=== PATIENT | male | born 1930 | race Caucasian/White ===

== ENCOUNTER 2017-09-13 08:22 | Outpatient (CLI) | payer MEDICARE, OTHER ==
[~2017-09-13] VITALS: Ht 177.8 cm; Wt 94.1 kg
--- NOTE | ~2017-09-13 | OP ---
PATIENT NAME: IRENE MENESES MEDICAL RECORD: [id number] :[birth year] LOCATION:D.CAT ADMISSION DATE: SURGEON: ALMA WATTERS MD DATE OF OPERATION: 09/13/2017 PROCEDURE: 1. Left heart catheterization. 2. Selective coronary angiography. 3. Left ventriculogram. 4. Vein graft angiography. 5. CHARLES angiography. INDICATION: Coronary artery disease, angina, and coronary artery bypass graft surgery. PROCEDURE IN DETAIL: After informed consent was obtained and after detailed explanation of risks, benefits as well as alternative therapies, the patient elected to proceed with angiogram and heart catheterization. The right femoral area had a preexisting sheath from aortofemoral runoff. All catheters exchanged through this sheath. FINDINGS: The ventriculogram was not performed secondary to inability to cross the valve. SELECTIVE CORONARY ANGIOGRAPHY: 1. Left main showed no significant angiographic disease. 2. Left anterior descending is totally occluded. 3. Left circumflex is totally occluded. 4. The right coronary is totally occluded. 5. CHARLES to the LAD is widely patent. 6. Vein graft to the circumflex is widely patent. 7. Vein graft to the right coronary is widely patent. 8. There is a fourth vein graft most likely to an LAD diagonal that is occluded. OVERALL IMPRESSION: Wide patency of the CHARLES to LAD, vein graft to the circumflex, vein graft to the RCA. Continue medical management of the coronary artery disease and cardiac risk factors. TRANSINT:[id number] Voice Confirmation ID: [id number] DOCUMENT ID: [id number] ALMA WATTERS MD at 1323 CC: [id number] DICTATION DATE: 09/13/17 1053 PLANNING LEAD: 09/13/17 1217 DEP CLI 09/13/17 [place] [id number]
--- NOTE | ~2017-09-13 | OP ---
PATIENT NAME: IRENE MENESES MEDICAL RECORD: [id number] :[birth year] LOCATION:D.CAT ADMISSION DATE: SURGEON: ALMA WATTERS MD DATE OF OPERATION: 09/13/2017 PROCEDURES: 1. Aortofemoral runoff. 2. Abdominal aortography. INDICATION: Claudication and peripheral vascular disease. PROCEDURE IN DETAIL: After informed consent was obtained and after a detailed explanation of the risks, benefits as well as alternative therapies, the patient elected to proceed with angiogram and aortofemoral runoff. The right femoral area was prepped and draped in normal sterile fashion. The right femoral artery was cannulated via modified Seldinger technique with placement of 6-Kenyan sheath. All catheters exchanged through this sheath. FINDINGS: 1. The abdominal aortography was performed. The catheter was pulled down for aortofemoral runoff. Abdominal aortography reveals very tortuous calcified abdominal aorta, minimal aortic dilatation infrarenally. No flow-limiting stenosis. 2. RIGHT LEG: A. 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 B. Femoral system: The common superficial and deep femoral have moderate irregularities, but no flow-limiting stenosis. C. Popliteal: Infrapopliteal vessels are patent with good 3-vessel runoff to the foot. 3. LEFT LEG: A. 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 B. Femoral system: The common superficial and deep femoral have moderate irregularities, but no flow-limiting stenosis. C. Popliteal: Infrapopliteal vessels are patent with good 3-vessel runoff to the foot. 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 Minimal peripheral vascular disease is present. Continue medical management of the peripheral vascular disease and peripheral risk factors. TRANSINT:[id number] Voice Confirmation ID: [id number] DOCUMENT ID: [id number] ALMA WATTERS MD at 1323 CC: [id number] DICTATION DATE: 09/13/17 1053 HYDRAULIC TESTER: 09/13/17 1215 DEP CLI 09/13/17 [place] [address]
--- NOTE | ~2017-09-13 | HEMODYNAMI ---
PATIENT:IRENE MENESES MEDICAL RECORD: [id number] : [birth year] LOCATION:[facility] ADMISSION DATE: 09/13/17 Generatedon:09/13/201710:51 Patient name: IRENE MENESES Patient #: [id number] SSN: : 1930 Date of study: 09/13/2017 Page: Of Hemodynamic Procedure Report Patient Data Patient Demographics Procedure consent was obtained First Name: IRENE Gender: Male Last Name: ZAIRA : 1930 [facility] Initial: C Age: 87 year(s) Patient #: [id number] Race: Unknown Additional ID: [id number] Contact details [address]: [address] [place] [address] State: [place] City: [place] Zip code: [address] Past Medical History Allergies Allergen Reaction Date Comments Reported Penicillins 09/13/2017 Admission Admission Data Admission Date: 09/13/2017 Admission Time: 8:22 Procedure Procedure Types Cath Procedure Diagnostic Procedure LHC LHC w/Coronaries w/Grafts Miscellaneous Procedures Moderate Sedation up to 30 minutes Peripheral Cath Diagnostic Procedure Cath Peripheral Zklcm-Fheljpt-Mez-Off Procedure Description Procedure Date Procedure Date: 09/13/2017 Procedure Start Time: 10:27 Procedure End Time: 10:51 Procedure Staff Name Function Mac Segura MD Performing Physician Wendy Dumas RT Monitor Clau Jang RT Scrub Ehsan Milan RN Nurse Procedure Data Cath Procedure Fluoroscopy Diagnostic fluoroscopy Total fluoroscopy Time: 6.8 time: 6.8 min min Diagnostic fluoroscopy Total fluoroscopy dose: 961 dose: 961 mGy mGy Contrast Material Contrast Material Type Amount (ml) Isovue 300 113 Entry Location Entry Primary Successful Side Size Upsize 1 Upsize Entry Closure Lopez ccessful Closure Location (Fr) (Fr) 2 (Fr) Remarks Device Remarks Femoral Right 5 Fr 6 Fr 6 Fr Exoseal artery Mid-Length Short Estimated blood loss: 10 ml Diagnostic catheters Device Type Used For End Catheter Placement MULTIPACK Pigtail 5 Fr LV Angiography catheter MULTIPACK Pigtail 5 Fr LV Angiography catheter MULTIPACK Pigtail 5 Fr Abdominal catheter aortogram with runoff MULTIPACK JL 4.0 5Fr Left Coronary catheter Angiography MULTIPACK 3DRC 5Fr Internal mammary catheter arteriography MULTIPACK 3DRC 5Fr Right Coronary catheter Angiography DIAGNOSTIC AR 2 MOD 5 Fr SVG Angiography catheter ([id number]) DIAGNOSTIC AR 2 MOD 5 Fr SVG Angiography catheter ([id number]) DIAGNOSTIC AR 2 MOD 5 Fr SVG Angiography catheter ([id number]) Procedure Complications No complications Procedure Medications Medication Administration Route Dosage 0.9% NaCl I.V. 100 ml/hr Oxygen NC 2 l/min Heparin Flush Bag added to field 2 bags (1000units/500ml NS) Lidocaine 2% added to field Versed I.V. 0.5 mg Fentanyl I.V. 50 mcg Hemodynamics Rest Heart Rate: 58 (bpm) Snapshots Pre Cath Intra NCS Post Cath Vital Signs Time Heart Resp SPO2 etCO2 NIBP (mmHg) Rhythm Pain Sedation Rate (ipm) (%) (mmHg) Status Level (bpm) 10:21:43 58 19 97 29.6 163/79(136) NSR 0 (11) 10(A) , No pain 10:26:34 59 15 98 0 148/75(118) NSR 0 (11) 10(A) , No pain 10:31:23 62 15 98 0 133/74(108) NSR 0 (11) 10(A) , No pain 10:36:11 63 15 97 33.3 141/65(101) NSR 0 (11) 9(A) , No pain 10:40:56 68 14 98 0 132/70(104) NSR 0 (11) 9(A) , No pain 10:45:38 61 13 99 33.3 128/64(106) NSR 0 (11) 9(A) , No pain 10:50:24 62 15 99 31.8 127/69(99) NSR 0 (11) 9(A) , No pain Medications Time Medication Route Dose Verified Delivered Reason Notes Effe ctiveness by by 10:20:53 0.9% NaCl I.V. 100 Ehsan Ehsan Per ml/hr Kayli reddy RN RN 10:21:04 Oxygen NC 2 Ehsan Ehsan Per l/min Kayli reddy RN RN 10:21:18 Heparin Flush added 2 Ehsan Ehsan used for Bag to bags Kayli Milan procedure (1000units/500ml field RN RN NS) 10:21:30 Lidocaine 2% added Ehsan Moser for local to Lorigan Lorigan anesthetic field RN RN 10:27:34 Versed I.V. 0.5 Ehsan Ehsan for mg Lorigan Lorigan sedation RN RN 10:27:43 Fentanyl I.V. 50 Ehsan Moser for mcg Lorigan Lorinca sedation RN knitted cloth examiner Log Time Note 10:03:17 Ehsan Milan RN sent for patient. Start room use. 10:03:18 Time tracking: Regular hours 10::21 Plan of Care:Hemodynamics will remain stable., Cardiac rhythm will remain stable., Comfort level will be maintained., Respiratory function will remain adequate., Patient/ family verbilizes understanding of procedure., Procedure tolerated without complication., Recovers from procedure without complications.. 10:10:14 Patient received from Pre/Post Procedure Room to CCL 1 Alert and oriented. Tansferred to table in Supine position. 10:10:15 Warm blankets applied, and merle hugger turned on for patient comfort. 10:10:15 Correct patient and procedure confirmed by team. 10:10:16 Signed procedure consent form obtained from patient. 10:10:17 ECG and BP/O2 sat monitors applied to patient. 10:20:38 Vital chart was started 10:20:53 0.9% NaCl 100 ml/hr I.V. was administered by Ehsan Milan RN; Per physician; 10:21:04 Oxygen 2 l/min NC was administered by Ehsan Milan RN; Per physician; 10:21:18 Heparin Flush Bag (1000units/500ml NS) 2 bags added to field was administered by Ehsan Milan RN; used for procedure; 10:21:30 Lidocaine 2% added to field was administered by Ehsan Milan RN; for local anesthetic; 10:22:04 Rhythm: sinus bradycardia 10:22:05 Full Disclosure recording started 10:22:12 H&P Date Dictated: 09/05/2017 Within 30 days and on chart., H&P Addendum completed by physician on day of procedure. (MUST COMPLETE FOR ALL OUTPATIENTS). 10:22:14 Pre-procedure instructions explained to patient. 10:22:14 Pre-op teaching completed and patient verbalized understanding. 10:22:16 Family in patients room. 10:22:17 Patient NPO since Midnight. 10:22:25 Patient allergic to Penicillins 10:22:27 Is the patient allergic to Iodine/contrast media? No. 10:22:30 Is patient on blood thinner?No 10:22:31 Patient diabetic? Yes. 10:22:32 If diabetic: On Metformin? Yes 10:22:34 If on Metformin: Last Dose? 09/11/2017 10:22:37 Previous problem with sedation/anesthesia? No ? 10:22:38 Snore? Yes 10:22:39 Sleep apnea? No 10:22:40 Deviated septum? No 10:22:41 Opens mouth fully? Yes 10:22:42 Sticks out tongue? Yes 10:22:43 Airway obstruction? No ? 10:22:46 Dentures? Yes In 10:22:48 Pre procedure: right dorsailis pedis pulse 2+ Normal; easily identifiable; not easily obliterated 10:22:59 Pre procedure: left dorsailis pedis pulse 1+ Palpable, but thready & weak; easily obliterated 10:23:01 Patient pain scale 0/10 ?. 10:23:07 IV patent on arrival in left forearm with 0.9% NaCl at [facility]. 10:23:09 Lab results completed and on chart. 10:23:12 Bilateral groins area was prepped with chlora-prep and draped in sterile fashion 10:23:13 Alarms reviewed by R. N. 10:23:13 Sharps counted by scrub and verified by R.N. 10:23:21 Use device set Femoral Dx 10:23:22 ACIST Syringe (39052) opened to sterile field. 10:23:23 Bag Decanter (2002S) opened to sterile field. 10:23:23 Medline Cath Pack ([id number]) opened to sterile field. 10:23:24 SHEATH 5FR [place] (LIP648) opened to sterile field. 10:23:24 DIAGNOSTIC WIRE .035 260cm J wire (483352) opened to sterile field. 10:23:25 ACIST Hand Control (05856) opened to sterile field. 10:23:26 ACIST Manifold (83796) opened to sterile field. 10:23:26 DIAGNOSTIC Multipack 5Fr catheter set ([id number]) opened to sterile field. 10:23:27 Tegaderm 4 x 4 (1626W) opened to sterile field. 10:23:28 PERCUTANEOUS ENTRY 19GA needle opened to sterile field. 10::41 Final Timeout: patient, procedure, and site verified with staff and physician. All members of the team are in agreement. 10::43 Right groin site verified by team. 10::46 Physical assessment completed. ASA score P 2 - A patient with mild systemic disease as per Mac Segura MD. 10::50 Sedation plan: IV Moderate Sedation Medication:Versed, Fentanyl 10::35 Zero performed for pressure channel P1 10:: Baseline sample Acquired. 10:: Versed 0.5 mg I.V. was administered by Ehsan Milan RN; for sedation; :: Fentanyl 50 mcg I.V. was administered by Ehsan Milan RN; for sedation; 10::43 Procedure started. 10::49 Local anesthetic to right femoral artery with Lidocaine 2% by Mac Segura MD.INITIAL ACCESS ONLY 10:29:48 A 5 Fr sheath was inserted into the Right Femoral artery 10:30:00 A MULTIPACK Pigtail 5 Fr catheter was advanced over the wire and used for LV Angiography. removed unable to advance up iliac due to tortuosity 10:31:08 GLIDE WIRE Super Stiff Angled 260cm (UM1386) opened to sterile field. 10:31:19 TORQUE DEVICE PLASTIC .038 ( TD01) opened to sterile field. 10:32:40 SHEATH 6FR Brite Tip 35cm ([id number]) opened to sterile field. 10:32:50 Sheath upsized to a 6 Fr Mid-Length. 10:34:27 A MULTIPACK Pigtail 5 Fr catheter was advanced over the wire and used for LV Angiography. 10:35:56 A MULTIPACK Pigtail 5 Fr catheter was advanced over the wire and used for Abdominal aortogram with runoff. 10:36:43 Catheter removed. 10:37:21 A MULTIPACK JL 4.0 5Fr catheter was advanced over the wire and used for Left Coronary Angiography. 10:40:52 Catheter removed. 10:41:06 A MULTIPACK 3DRC 5Fr catheter was advanced over the wire and used for Internal mammary arteriography.To LAD 10:42:27 A MULTIPACK 3DRC 5Fr catheter was advanced over the wire and used for Right Coronary Angiography. 10:42:32 Catheter removed. 10:43:38 A DIAGNOSTIC AR 2 MOD 5 Fr catheter ([id number]) was advanced over the wire and used for SVG Angiography. to CIRC 10:44:52 A DIAGNOSTIC AR 2 MOD 5 Fr catheter ([id number]) was advanced over the wire and used for SVG Angiography.to RCA 10:47:01 A DIAGNOSTIC AR 2 MOD 5 Fr catheter ([id number]) was advanced over the wire and used for SVG Angiography.to DIAG occluded 10:47:11 Catheter removed. 10:47:48 Sheath removed intact; hemostasis achieved with Exoseal to the Right Femoral artery. 10:47:48 Sheath upsized to a 6 Fr Short. 10:48:01 EXOSEAL 6Fr (EX600) opened to sterile field. 10:48:06 Procedure ended.(Physican Out) 10:48:40 Fluoroscopy time 06.80 minutes. 10:48:43 Fluoroscopy dose: 961 mGy 10:48:43 Flurop Dose total: 961 10:48:49 Contrast amount:Isovue 300 113ml. 10:49:15 SHEATH 6FR [place] (KLU179) opened to sterile field. 10:49:28 Sharps counted by scrub and verified by R.N. 10:49:47 Insertion/operative site no bleeding no hematoma. 10:49:54 Post-op/insertion site Right Femoral artery dressed using a 4 x 4 and Tegaderm. 10:49:57 Post right femoral artery:stable, clean and dry 10:49:59 Post Procedure Pulses reassessed and unchanged 10:50:12 Post-procedure physical assessment completed. ASA score P 2 - A patient with mild systemic disease as per Mac Segura MD. 10:50:14 Post procedure rhythm: unchanged. 10:50:16 Estimated blood loss: 10 ml 10:50:18 Post procedure instruction explained to patient.Patient verbalizes understanding. 10:50:18 Patient needs reinforcement of post procedure teaching. 10:50:32 Procedure type changed to Cath procedure, Diagnostic procedure, LHC, LHC w/Coronaries w/Grafts, Miscellaneous Procedures, Moderate Sedation up to 30 minutes, Peripheral Cath Diagnostic Procedure, Cath Peripheral, Ggwil-Eoasivh-Uzn-Off 10:50:37 Procedure Complication : No complications 10:50:39 See physician's report for complete and final results. 10:51:21 Procedure and supply charges have been captured, reviewed, submitted and are correct. 10:51:24 Vital chart was stopped 10:51:26 Report given to Pre/Post Procedure Room. 10:51:29 Patient transfered to Pre/Post Procedure Room with Stretcher. 10:51:37 Procedure ended. 10:51:37 Full Disclosure recording stopped 10:51:40 End room use (Document Last) Device Usage Item Name Manufacture Quantity Catalog Hospital Part Current Minimal Lot# / Number Charge Number Stock Stock Serial# Code ACIST Acist 1 93303 957297 351514 [id number] 20 Syringe Medical (59848) Systems Inc Bag Decanter Microtek 1 2001S 252092 61313 851931 5 () Medical Inc. Medline Cath Cardinal 1 [id number] 303070 79496 422069 5 Pack Health ([id number]) SHEATH 5FR Terumo 1 TEG546 377247 095365 510564 40 [place] (WBL867) DIAGNOSTIC [facility] 1 800859 184103 526105 227242 30 WIRE .035 260cm J wire (283267) ACIST Hand Acist 1 75615 440959 673902 856980 5 Control Medical (36811) Systems Inc ACIST Acist 1 64592 216007 510183 429281 5 Manifold Medical (36863) Systems Inc DIAGNOSTIC Cardinal 1 NC0755 599917 89749 109290 30 Multipack Health 5Fr catheter set (YR4206) Tegaderm 4 x 3M 1 1626W 491205 478007 406975 5 4 (1626W) PERCUTANEOUS Cook Medical 1 E73324 017108 514828 5 ENTRY 19GA needle MULTIPACK Cardinal 1 293101 5 Pigtail 5 Fr Health catheter GLIDE WIRE Terumo 1 FP9115 728414 564818 811308 5 Super Stiff Angled 260cm (AD8810) TORQUE Given 1 TD01 050535 353669 892991 5 DEVICE Scientific PLASTIC .038 ( TD01) SHEATH 6FR Cardinal 1 [id number] 311196 469785 481745 1 Brite Tip Health 35cm (126955K) MULTIPACK JL Cardinal 1 728307 5 4.0 5Fr Health catheter MULTIPACK Cardinal 1 520497 5 3DRC 5Fr Health catheter DIAGNOSTIC Cardinal 1 [id number] 032377 292928 651588 20 AR 2 MOD 5 Health Fr catheter (336558Z) EXOSEAL 6Fr Cardinal 1 EX600 154311 270641 325959 10 (EX600) Health SHEATH 6FR Terumo 1 AJW695 199689 795454 502386 40 [place] (IAN986) Signature Audit [place] Stage Time Signature Unsigned Intra-Procedure 09/13/2017 Wendy 10:51:50 AM Counts RT(R) Signatures Monitor : Wendy Signature : Counts RT Date : Time : [address] [address]
[2017-09-13] MEDS ORDERED: BAYER CHEWABLE81 MG PO (08:33)
[2017-09-13] MEDS ORDERED: NORVASC5 MG PO (08:33)
[2017-09-13] MEDS ORDERED: GLUCOPHAGE500 MG PO (08:33)
[2017-09-13] MEDS ORDERED: ZOCOR80 MG PO (08:34)
[2017-09-13] MEDS ORDERED: FLOMAX0.4 MG PO (08:34)
[2017-09-13] MEDS ORDERED: MOBIC7.5 MG PO (08:34)
[2017-09-13] MEDS ORDERED: DIOVAN HCT 160/1 TAB PO (08:34)
[2017-09-13] MEDS ORDERED: PRINIVIL20 MG PO (08:35)
[2017-09-13] MEDS ORDERED: JANUVIA100 MG PO (08:35)
[2017-09-13 08:51] VITALS: BP 141/78; Ht 177.8 cm; Wt 94.1 kg
[2017-09-13 08:59] LABS: BASOPHILS 0.9 % (0-2); EOSINOPHILS 6.8 % (0-7); HEMATOCRIT 46.3 % (42.0-54.0); HEMOGLOBIN 15.9 g/dL (13.5-17.5); IMMATURE GRANULOCYTES 0.2 % (0-5); LYMPHOCYTES 17.2 % (15-50); MCH 32.8 pg (26.0-34.0); MCHC 34.3 g/dL (31.0-37.0); MCV 95.5 fL (80.0-100.0); MEAN PLATELET VOLUME 11.5 fL (7.4-10.4); MONOCYTES 8.8 % (2-11); NEUTROPHILS 66.1 % (40-80); PLATELET COUNT 143 10x3/uL (130-400); RBC 4.85 10x6/uL (4.20-6.10); RDW 13.7 % (11.5-14.5); WBC 6.6 10x3/uL (4.8-10.8)
[2017-09-13 09:14] LABS: GLUCOSE 133 mg/dL (74-106); UREA NITROGEN 17 mg/dL (7-18)
[2017-09-13 09:15] LABS: CALC OSMOLALITY 282 mosm/kg (275-300); CALCIUM 9.5 mg/dL (8.5-10.1); CARBON DIOXIDE 24.6 mmol/L (21.0-32.0); CHLORIDE - SERUM 103 mmol/L (98-107); POTASSIUM - SERUM 4.3 mmol/L (3.5-5.1); SODIUM 140 mmol/L (136-145); eGFR NON AFRICAN AMERICAN 75 mL/min (90-120)
== END 2017-09-13 13:10 | disposition home or self-care (01) ==
LOC: D.CATH 08:22
PROVIDERS: Internal Medicine Interventional Cardiology
DX: I25.10 Atherosclerotic heart disease of native coronary artery without angina pectoris (principal); I70.219 Atherosclerosis of native arteries of extremities with intermittent claudication, unspecified extremity; I10 Essential (primary) hypertension; Z01.812 Encounter for preprocedural laboratory examination